=== PATIENT | female | born 1985 | race Hispanic/Latino ===

== ENCOUNTER 2017-01-08 23:47 | Emergency (ER) | payer OTHER ==
[2017-01-09] MEDS ORDERED: Lidocaine 2% Inj (20ml) INFIL ONE (00:23)
--- NOTE | 2017-01-09 00:26 | C.PDOC ---
History Of Present Illness 31 yo female come in for evaluation of Right foot laceration sustained [employer] at home. Pt sts, sustained Right foot cut with plastic chair. Otherwise, pt denies deformity,, weakness, sensory or vascular deficits to RIght foot. Ambulate to ED for evaluation. Time Seen by Provider: 01/09/17 00:00 Chief Complaint (Nursing): Abnormal Skin Integrity History Per: Patient Onset/Duration Of Symptoms: Sudden Onset Past Medical History Reviewed: Historical Data, Nursing Documentation, Vital Signs Vital Signs: Last Vital Signs Temp 97.9 F 01/08/17 23:58 Pulse 92 H 01/08/17 23:58 Resp 18 01/08/17 23:58 BP 110/70 01/08/17 23:58 Pulse Ox 99 01/09/17 00:34 - Medical History PMH: Anxiety, Depression Family History: States: No Known Family Hx - Social History Hx Alcohol Use: No Hx Substance Use: No - Immunization History Hx Tetanus Toxoid Vaccination: No Hx Influenza Vaccination: No Hx Pneumococcal Vaccination: No Review Of Systems Except As Marked, All Systems Reviewed And Found Negative. Constitutional: Negative for: Fever, Chills Eyes: Negative for: Vision Change Musculoskeletal: Positive for: Foot Pain Skin: Positive for: Lesions Neurological: Negative for: Weakness, Numbness, Altered Mental Status Physical Exam - Physical Exam Appears: Well, Non-toxic, No Acute Distress Skin: Normal Color, Warm, Other (5cm L-shape cutaneous laceration to Right mid- plantar foot, mild bloody oozing noted. FAROM of Right foot, no neurovascular deficits.) Head: Atraumatic, Normacephalic Neck: No Midline Cervical Tenderness, No Paracervical Tenderness, No Step Off Deformity, Supple Chest: Symmetrical, No Deformity Back: No Vertebral Tenderness Extremity: Normal ROM (Right foot), No Deformity, No Swelling Neurological/Psych: Oriented x3, Normal Speech, Normal Motor, Normal Sensation, Normal Reflexes ED Course And Treatment O2 Sat by Pulse Oximetry: 99 Progress Note: On re-eavluation, pt is afebrile, hemodynamicaly stable. Ambulatory in Ed with stable gait. Right foot: laceration repaired w/sutures w/ o difficulty. FAROM, no neurovascular deficits. tetanus, abx given. Pt advised on wound care. re.f to f/u with PMD in 2-3 dyas for wound check. return to ED at any time if any sign of infection. Laceration - Laceration Repair Right foot Wound Length (In cm): 4 Description Of Wound: Linear (L-shape) Anesthesia: Lidocaine 2% Wound Examination: Irrigated With Saline, No FB With Wound Exploration, No Tendon Injury With Wound Exploration Wound Closure: Suture (#6) Suture Technique And Material Used: Interrupted, Nylon (4-0) Wound Complexity: Simple Disposition Counseled Patient/Family Regarding: Diagnosis, Need For Followup, Rx Given - Disposition Referrals: [facility] [Outside] Disposition: HOME/ ROUTINE Disposition Time: 00:28 Condition: STABLE Additional Instructions: KEEP WOUND CLEAN, DRY LIGHT DUTY TO RIGHT FOOT, AVOID PROLONG WALKING FOR 1-2 DAYS TAKE MEDICATION PRESCRIBED SUTURE REMOVAL IN 10 DAYS RETURN TO ED AT ANY TIME IF ANY SIGN OF INFECTION. Prescriptions: Doxycycline Hyclate [Doryx] 100 mg PO BID #14 cap Instructions: Care For Your Stitches (ED), Laceration (ED) Forms: [employer] (Macedonian) - Clinical Impression Clinical Impression: Foot laceration
[2017-01-09] MEDS ORDERED: Lidocaine 2% Inj (20ml) ONE (00:31)
[2017-01-09] MEDS ORDERED: Bacitracin Ointment 30 GM TUBE TOP STA (01:01)
[2017-01-09] MEDS ORDERED: Bacitracin 500 Units/gm Oint Foilpak UD ONE (01:02)
[2017-01-09 01:23] VITALS: BP 111/75; PULSE 96; RESP 16; TEMP 97.7; O2SAT 96
== END 2017-01-09 01:26 | disposition home or self-care (01) ==
LOC: C.ER 23:47
DX: S91.311A Laceration without foreign body, right foot, initial encounter (principal); W45.8XXA Other foreign body or object entering through skin, initial encounter; Y93.89 Activity, other specified; Y92.009 Unspecified place in unspecified non-institutional (private) residence as the place of occurrence of the external cause